=== PATIENT | female | born 1970 | race African-American/Black ===

== ENCOUNTER 2016-02-16 20:02 | Emergency (ER) | payer BC ==
[~2016-02-16] VITALS: Ht 172.7 cm; Wt 91.4 kg
[~2016-02-16 20:02] MED LIST: DIFL150T PO; FLAG500T PO; ZITH250T PO
[2016-02-16 20:05] VITALS: BP 129/78; PULSE 103; RESP 16; TEMP 97.9; O2SAT 99
--- NOTE | 2016-02-16 21:56 | PD ---
HPI Chief Complaint: Injury Time Seen by Provider: 21:45 Travel History International Travel<30 days: No Contact w/Intl Traveler<30days: No Traveled to known affect area: No History of Present Illness HPI This is a 45 year old female presents for evaluation of right shoulder pain. She reports that yesterday she was moving some furniture when she felt a pop in her right shoulder. She now has right shoulder pain which is worse with any sort of range of motion activity. Pain is decreased when she holds her right arm still. She denies any other injuries and she has no other complaints at this time. [facility] Past Medical History High Cholesterol: Yes Diminished Hearing: No ?: Not : 2 Para: 2 Miscarriage: 0 : 0 Ovarian Cysts: Yes (BILATERAL) Tubal Ligation: Yes Social History Alcohol Use: No Tobacco Use: No Substance Use: No Allergies-Medications (Allergen,Severity, Reaction): Coded Allergies: Sulfa (Verified Allergy, Severe, HIVES, 02/16/16) Reported Meds & Prescriptions Reported Meds & Active Scripts Active Ibuprofen 800 Mg Tab 800 Mg PO Q8H PRN Review of Systems Except as stated in HPI: all other systems reviewed are Neg Physical Exam Narrative GENERAL: Well-developed well-nourished female in no acute distress SKIN: Warm and dry. No bruising or soft tissue swelling HEAD: Atraumatic. Normocephalic. EYES: Pupils equal and round. No scleral icterus. No injection or drainage. CARDIOVASCULAR: Regular rate and rhythm. No murmur appreciated. RESPIRATORY: No accessory muscle use. Clear to auscultation. Breath sounds equal bilaterally. GASTROINTESTINAL: Abdomen soft, non-tender, nondistended. MUSCULOSKELETAL: No obvious deformities. There is tenderness to palpation to the right glenohumeral joint, right across the clavicular joint region. The patient has limited passive and active range of motion of the right shoulder secondary to pain. Capillary refill less than 2 seconds all digits right hand. 2+ radial pulse. No tenderness to palpation along the cervical thoracic or lumbar spine. NEUROLOGICAL: Awake and alert. No obvious cranial nerve deficits. Motor grossly within normal limits. Normal speech. Data Data Last Documented VS Vital Signs Date Time Temp Pulse Resp B/P Pulse Ox O2 Delivery O2 Flow Rate FiO2 02/16/16 21:38 103 16 99 Room Air 02/16/16 20:05 97.9 129/78 Orders Shoulder, Complete (>2vws) (02/16/16 ) Ketorolac Inj (Toradol Inj) (02/16/16 22:00) [facility] Medical Decision Making Medical Screen Exam Complete: Yes Emergency Medical Condition: Yes Medical Record Reviewed: Yes Interpretation(s) Right shoulder x-ray no acute abnormalities Differential Diagnosis Right shoulder strain, right rotator cuff tear, shoulder impingement, adhesive capsulitis, acromioclavicular separation, cervical radiculopathy Narrative Course 45-year-old female with right shoulder pain after moving some furniture yesterday in which she felt a pop. On examination she has quite limited passive and active range of motion of the right shoulder. X-ray has been ordered and Toradol injection will be provided for pain control. X-ray reveals no acute abnormalities. Given her age emotion limitation she'll be discharged with sling for short-term use, prescription strength ibuprofen for discomfort. Diagnosis Primary Impression: Right shoulder strain Qualified Code: S46.911A - Right shoulder strain, initial encounter Additional Instructions: Use sling for the next few days. Perform passive range of motion activities several times a day utilizing the right shoulder to prevent stiffness. Take ibuprofen for discomfort, take with meals. Follow-up with primary care physician in one to 2 weeks for recheck. Return for any emergent medical conditions. Med/Other Pt SpecificInfo: Prescription(s) given Scripts Ibuprofen 800 Mg [id number] Mg PO Q8H PRN (PAIN SCALE 6 TO 10) #30 TAB Ref 0 Prov:Christin Smalls MD 02/16/16 Disposition: 01 DISCHARGE HOME Condition: Stable Randy Lopez Feb 16, 2016 21:56
[2016-02-16] MEDS ORDERED: IBUP800T23 PO (21:57)
[2016-02-16] MEDS ORDERED: KETOROLAC TROMETHAMINE 60 MG/2 ML (IM) VIAL IM ONE (22:00)
--- NOTE | 2016-02-16 22:37 | RADRPT ---
EXAM DATE/TIME: 02/16/2016 22:20 [facility] COMPARISON: No previous studies available for comparison. INDICATIONS : Right posterior shoulder pain, injured lifting furniture MEDICAL HISTORY : None. SURGICAL HISTORY : None. ENCOUNTER: Initial ACUITY: 1 day PAIN SCORE: 4/10 LOCATION: Right shoulder FINDINGS: Multiple view examination of the right shoulder demonstrates no evidence of fracture or dislocation. The glenohumeral and acromioclavicular joints are maintained. There is normal range of motion betwe en internal and external rotation. Bony mineralization is normal. CONCLUSION: Normal radiographic appearance of the right shoulder. Roel Dunne MD on February 16, 2016 at 22:35 Board Certified Radiologist. This report was verified electronically.
== END 2016-02-17 00:21 | disposition home or self-care (01) ==
LOC: NEPB 20:02
DX: S46.911A Strain of unspecified muscle, fascia and tendon at shoulder and upper arm level, right arm, initial encounter (principal); E78.00 Pure hypercholesterolemia, unspecified; X50.9XXA Other and unspecified overexertion or strenuous movements or postures, initial encounter; Y92.9 Unspecified place or not applicable
CPT/HCPCS: 73030; 96372; 99283; J1885